=== PATIENT | female | born 1985 | race Two or more races ===

== ENCOUNTER 2022-12-24 13:09 | Emergency (ER) | payer MEDICAID ==
[2022-12-24] MEDS ORDERED: cefTRIAXone 500 MG in Lidocaine 1% 1 ML IM STA (17:07)
[2022-12-24] MEDS ORDERED: Acetaminophen/oxyCODONE 325-5 MG Tab PO STA (17:12)
== END 2022-12-24 18:17 | disposition home or self-care (01) ==
LOC: MW.ED 13:09
DX: N61.1 Abscess of the breast and nipple (principal)
CPT/HCPCS: 96372; 99282; A9270; J0696; 99283; J3490

== ENCOUNTER 2022-12-29 15:56 | Emergency (ER) | payer MEDICAID ==
[2022-12-29] MEDS ORDERED: Sodium Chloride 0.9% 2.5 ML Syringe FLUSH PRN (16:09)
[2022-12-29] MEDS ORDERED: Sodium Chloride 0.9% 10 ML Syringe FLUSH PRN (16:09)
[2022-12-29] MEDS ORDERED: HYDROmorphone 1 MG/ML Syringe IVPUSH STA ×2 (16:12→18:23)
[2022-12-29] MEDS ORDERED: Clindamycin Phosphate in D5W 600 MG in Premix Bag 1 BAG IV STA ×2 (16:19)
[2022-12-29] MEDS ORDERED: Sodium Chloride 0.9% 1,000 ML IV STA (16:19)
[2022-12-29 17:00] LABS: POTASSIUM,K 3.4 mmol/L (3.5-5.1)
[2022-12-29] MEDS ORDERED: Ondansetron 4 MG/2 ML SDV IVPUSH STA (19:38)
== END 2022-12-29 20:29 | disposition home or self-care (01) ==
LOC: MW.ED 15:56
DX: N61.1 Abscess of the breast and nipple (principal); Z90.710 Acquired absence of both cervix and uterus
CPT/HCPCS: 36415; 76641; 80053; 81001; 83605; 85025; 87040; 87086; 96365; 96375; 96376; 99283; J1170; J2405; J3490; J7030; 99284

== ENCOUNTER 2022-12-30 09:08 | Day surgery (SDC) | payer MEDICAID ==
[2022-12-30] MEDS ORDERED: Albuterol 0.083% 2.5 MG/3 ML Neb Soln NEB PRN (09:20)
[2022-12-30] MEDS ORDERED: Metoclopramide 10 MG/2 ML SDV IVPUSH PRN (09:20)
[2022-12-30] MEDS ORDERED: fentaNYL 50 MCG/ML SDV IVPUSH PRN (09:20)
[2022-12-30] MEDS ORDERED: Morphine 2 MG/ML SYRINGE IVPUSH PRN (09:20)
[2022-12-30] MEDS ORDERED: Naloxone 0.4 MG/ML SDV IVPUSH PRN (09:20)
[2022-12-30] MEDS ORDERED: Ondansetron 4 MG/2 ML SDV IVPUSH PRN (09:20)
[2022-12-30] MEDS ORDERED: Scopolamine 1.5 MG Transdermal Patch TOP ONE (09:21)
[2022-12-30] MEDS ORDERED: fentaNYL 100 MCG/2 ML SDV ONE ×2 (09:59→11:59)
[2022-12-30] MEDS ORDERED: Lactated Ringers 1,000 ML IV SCH ×2 (10:00→13:00)
[2022-12-30] MEDS ORDERED: Bupivacaine 0.5% 10 ML SDV ONE (11:44)
[2022-12-30] MEDS ORDERED: Lidocaine 1% 20 ML MDV ONE (11:45)
[2022-12-30] MEDS ORDERED: Dexamethasone 4 MG/ML 5 ML MDV ONE (11:59)
[2022-12-30] MEDS ORDERED: Ondansetron 4 MG/2 ML SDV ONE (11:59)
[2022-12-30] MEDS ORDERED: Propofol 200 MG/20 ML SDV ONE (11:59)
[2022-12-30] MEDS ORDERED: Lidocaine 2% 5 ML SDV ONE (11:59)
[2022-12-30] MEDS ORDERED: Acetaminophen/HYDROcodone 325-5 MG Tab PO PRN (12:58)
[2022-12-30] MEDS: HYDROmorphone 1 MG/ML Syringe IVPUSH PRN ×2 (12:59→13:14)
== END 2022-12-30 14:35 | disposition home or self-care (01) ==
LOC: MW.SDS 09:08
PROVIDERS: ATTEND Surgery
DX: N61.1 Abscess of the breast and nipple (principal); F41.9 Anxiety disorder, unspecified; F32.A Depression, unspecified; J45.909 Unspecified asthma, uncomplicated; Z98.890 Other specified postprocedural states; Z79.899 Other long term (current) drug therapy; Z87.891 Personal history of nicotine dependence; Z98.1 Arthrodesis status
CPT/HCPCS: 19020; 87070; 87075; 87205; A9270; J1100; J1170; J2405; J2704; J3010; J7120; J3490